=== PATIENT | female | born 1955 | race Caucasian/White ===

== ENCOUNTER 2017-05-04 12:04 | Emergency (ER) | payer BC ==
[~2017-05-04] VITALS: Ht 160 cm; Wt 68.0 kg
[2017-05-04] MEDS ORDERED: CALAN120 MG PO (12:18)
[2017-05-04] MEDS ORDERED: LISINOPRIL20 MG PO (12:18)
[2017-05-04] MEDS ORDERED: SPIRIVA1 INHALATI IH (12:19)
[2017-05-04] MEDS ORDERED: ADVAIR 500/501 DISK IH (12:19)
[2017-05-04] MEDS ORDERED: PROAIR HFA8.5 GM IH (12:19)
[2017-05-04 12:38] LABS: EOSINOPHIL (%) 1.9 % (0-5); EOSINOPHIL COUNT 0.2 K/uL (0-0.3); HEMATOCRIT 44.2 % (36.0-46.0); IMMATURE GRANULOCYTE (%) 0.4 % (0.0-0.7); INSTRUMENT ABS NEUTROPHIL CT 6.7 K/uL; MCH 36.2 PG (29.0-34.0); MCHC 35.1 G/DL (30.0-36.0); MCV 103.3 FL (83-99); MEAN PLAT.VOLUME 8.8 uM^3 (9.5-12.4); MONOCYTE (%) 7.2 % (3-12); MONOCYTE COUNT 0.6 K/uL (0-0.8); NEUTROPHIL (%) 78.3 % (45-76); NEUTROPHIL COUNT 6.7 K/uL (1.8-6.4); PLATELET COUNT 202 K/uL (156-360); RBC DIS.WIDTH-CV 12.8 % (11.8-14.6); RBC DIS.WIDTH-SD 49.2 % (39-53); RED BLOOD COUNT 4.28 M/uL (3.80-5.20); WHITE BLOOD COUNT 8.6 K/uL (4.1-10.2)
[2017-05-04 12:51] LABS: CHLORIDE 104 mEq/L (99-109); POTASSIUM 3.6 mEq/L (3.7-5.4); SODIUM 140 mEq/L (136-147)
[2017-05-04 12:52] LABS: GLUCOSE 103 mg/dL (70-99)
[2017-05-04 12:54] LABS: ANION GAP 11 MEQ/L (2-14)
[2017-05-04 12:57] LABS: UREA NITROGEN (BUN) 8 mg/dL (9-23)
[2017-05-04 12:58] LABS: GFR ESTIMATE (CALCULATED) > 59 mL/min/
[2017-05-04 13:00] LABS: TROP-I INTERPRETATION NEGATIVE; TROPONIN-I < 0.01 ng/mL (0.0-0.30)
[2017-05-04 14:37] VITALS: BP 170/94
== END 2017-05-04 14:39 | disposition home or self-care (01) ==
LOC: EME 12:04
PROVIDERS: Emergency Medicine
DX: R00.2 Palpitations (principal); J44.9 Chronic obstructive pulmonary disease, unspecified; I10 Essential (primary) hypertension
CPT/HCPCS: 71010; 80048; 84484; 85025; 93005; 94640; 99281; 99285